=== PATIENT | female | born 1985 | race Caucasian/White ===

== ENCOUNTER 2017-03-19 17:27 | Emergency (ER) | payer OTHER ==
[~2017-03-19] VITALS: Wt 79.4 kg
[~2017-03-19 17:27] MED LIST: AMOXICILLIN500 M2 PO; AMOXICILLIN500 MG PO; AMOXIL500 MG PO; ATARAX25 MG PO; CLARITIN10 MG PO; FLEXERIL5 MG PO; KENALOG0.1% TP; LIDEX0.05% T; MOTRIN800 MG PO; NKHM; PHENERGAN W/DM120 ML PO; PREDNICOT20 MG PO; PREDNISONE20 MG PO; ROBITUSSIN AC 110 ML PO; TESSALON PERLE200 MG PO; TRIMOX500 MG PO; VICODIN 500 MG-1 TAB PO; ZITHROMAX Z PA250 MG PO; ZYRTEC10 MG PO
[2017-03-19 17:29] VITALS: BP 156/91
[2017-03-19] MEDS ORDERED: AMITRIPTYLINE H10 M1 PO (17:33)
[2017-03-19] MEDS ORDERED: ROBITUSSIN DM 105 ML PO (18:00)
[2017-03-19] MEDS ORDERED: PREDNISONE10 MG PO (18:00)
[2017-03-19] MEDS ORDERED: FLONASE ALLERG9.9 ML NAS (18:00)
[2017-03-19] MEDS ORDERED: CLARITIN10 MG PO (18:00)
== END 2017-03-19 19:32 | disposition home or self-care (01) ==
LOC: ED 17:27
DX: B34.9 Viral infection, unspecified (principal); R03.0 Elevated blood-pressure reading, without diagnosis of hypertension; J02.9 Acute pharyngitis, unspecified; Z91.030 Bee allergy status; Z79.899 Other long term (current) drug therapy

== ENCOUNTER → 2022-08-30 | Outpatient (CLI) | payer OTHER ==
[~2022-08-30] MED LIST changes: +AMITRIPTYLINE H10 M1 PO; +FLONASE ALLERG9.9 ML NAS; +PREDNISONE10 MG PO; +ROBITUSSIN DM 105 ML PO
[2022-08-30 15:52] LABS: ALKALINE PHOSPHATASE 54 U/L (46-116); BUN 6 mg/dl (9-23); CHLORIDE 104 mmol/L (98-107); CHOLESTEROL 106 mg/dL (<200); LDL CHOLESTEROL 67 mg/dL (9-159); POTASSIUM 3.7 mmol/L (3.4-5.1); SGPT/ALT 14 U/L (10-49); TOTAL PROTEIN 7.8 gm/dL (6.0-8.0); TRIGLYCERIDES 53 mg/dl (<150)
== END | disposition home or self-care (01) ==
LOC: LAB 15:18
PROVIDERS: Internal Medicine; ATTEND Nurse Practitioner Women's Health
DX: E78.1 Pure hyperglyceridemia (principal); E55.9 Vitamin D deficiency, unspecified; R53.83 Other fatigue

== ENCOUNTER → 2022-10-02 | Outpatient (CLI) | payer OTHER | END | disposition home or self-care (01) | LOC: US 00:14 | PROVIDERS: ATTEND Nurse Practitioner Women's Health | DX: N93.9 Abnormal uterine and vaginal bleeding, unspecified (principal) ==

== ENCOUNTER → 2022-12-25 | Outpatient (CLI) | payer OTHER | LOC: US 08:12 | PROVIDERS: ATTEND Nurse Practitioner Women's Health | DX: N83.202 Unspecified ovarian cyst, left side (principal) ==

== ENCOUNTER → 2024-11-21 | Outpatient (CLI) | payer OTHER ==
[2024-11-21 11:20] LABS: BASO % 0.8 % (0.0-1.0); EOS # 0.1 10*3/uL (0.0-0.4); EOS % 1.5 % (1.0-4.0); HEMATOCRIT 40.4 % (37.0-47.0); MEAN CELL VOLUME 95.7 fl (81.0-99.0); MEAN CORPUSCULAR HGB 31.8 pg (27.0-31.0); MEAN CORPUSCULAR HGB CONC 33.2 g/dl (33.0-37.0); MEAN PLATELET VOLUME 8.6 fl (9.6-12.3); MONO # 0.3 10*3/uL (0.1-1.0); MONO % 5.7 % (3.0-9.0); NEUT # 3.2 10*3/uL (2.3-7.9); NEUT % 66.9 % (47.0-73.0); PLATELET COUNT AUTOMATED 269 10*3/uL (130-400); RED BLOOD COUNT 4.22 10*6/uL (4.10-5.10); RED CELL DISTRI WIDTH 12.9 % (0-14.5); WHITE BLOOD COUNT 4.8 10*3/uL (4.8-10.8)
[2024-11-21 11:28] LABS: ALKALINE PHOSPHATASE 63 U/L (46-116); BUN 8 mg/dl (9-23); CHLORIDE 105 mmol/L (98-107); CHOLESTEROL 158 mg/dL (<200); LDL CHOLESTEROL 100 mg/dL (9-159); POTASSIUM 4.1 mmol/L (3.4-5.1); SGPT/ALT 16 U/L (5-49); TRIGLYCERIDES 53 mg/dl (<150)
[2024-11-21 12:13] LABS: VITAMIN D, 25-HYDROXY 38.9 ng/mL (30-100)
== END | disposition home or self-care (01) ==
LOC: LAB 10:06
PROVIDERS: ATTEND Internal Medicine
DX: E55.9 Vitamin D deficiency, unspecified (principal); E78.1 Pure hyperglyceridemia; E61.1 Iron deficiency; Z00.00 Encounter for general adult medical examination without abnormal findings; Z79.899 Other long term (current) drug therapy